=== PATIENT | female | born 1990 | race Caucasian/White ===

== ENCOUNTER 2018-02-10 20:52 | Emergency (ER) | payer SELFPAY ==
[~2018-02-10] VITALS: Ht 172.7 cm; Wt 63.6 kg
[2018-02-10 21:01] VITALS: BP 118/79
[2018-02-10] MEDS ORDERED: SODIUM CHLORIDE FLUSH 10ML SYR IVF ONE (21:30)
[2018-02-10] MEDS ORDERED: SODIUM CHLORIDE 0.9% 1,000ML IVBOLUS ONE (21:30)
[2018-02-10 21:56] LABS: BASOPHILS # (AUTO) 0.02 x10^3/uL (0-0.1); BASOPHILS % (AUTO) 0 % (0-1); EOSINOPHILS # (AUTO) 0.02 x10^3/uL (0-0.4); EOSINOPHILS % (AUTO) 0 % (1-7); LYMPHOCYTES # (AUTO) 0.66 x10^3/uL (1-3.4); LYMPHOCYTES % (AUTO) 9 % (22-44); MD NO; MEAN CORPUSCULAR HEMOGLOBIN 25.9 pg (27.0-34.8); MEAN CORPUSCULAR HGB CONC 32.8 g/dL (32.4-35.8); MEAN PLATELET VOLUME 8.9 fL (7.4-10.4); MONOCYTES # (AUTO) 0.35 x10^3/uL (0.2-0.8); MONOCYTES % (AUTO) 4 % (2-9); NEUTROPHILS # (AUTO) 6.78 x10^3/uL (1.8-6.8); NEUTROPHILS % (AUTO) 87 % (42-75); PLATELET COUNT 247 x10^3/uL (130-400); RED BLOOD COUNT 4.22 x10^6/uL (3.82-5.3); RED CELL DISTRIBUTION WIDTH 17.5 % (9.6-15.2)
[2018-02-10 22:06] LABS: ALANINE AMINOTRANSFERASE 12 U/L (12-78); ALBUMIN 2.6 g/dL (3.4-5.0); ANION GAP 11 mmol/L (5-15); CALCIUM 8.2 mg/dL (8.5-10.1); CHLORIDE 104 mmol/L (98-107); CREATININE 0.61 mg/dL (0.55-1.02)
[2018-02-10 22:11] LABS: CULTURE INDICATED? YES; MICROSCOPIC INDICATED
[2018-02-10 22:24] LABS: ALKALINE PHOSPHATASE 82 U/L (45-117); BILIRUBIN,TOTAL 0.2 mg/dL (0.2-1.0); TOTAL PROTEIN 7.7 g/dL (6.4-8.2)
== END 2018-02-10 23:33 | disposition left against medical advice (07) ==
LOC: ED 22:07
DX: O20.0 Threatened abortion (principal); N30.00 Acute cystitis without hematuria; Z67.91 Unspecified blood type, Rh negative
CPT/HCPCS: 36415; 76801; 80053; 81001; 84702; 85025; 86850; 86900; 87077; 87086; 96360; 99285; J7030; 87186

== ENCOUNTER 2018-03-18 10:57 | Inpatient (IN) | payer OTHER, MEDICAID ==
[~2018-03-18] VITALS: Ht 170.2 cm; Wt 66.1 kg
[~2018-03-18 10:57] MED LIST: BUPR1FIL5 SL
[2018-03-18 12:47] LABS: BASOPHILS # (AUTO) 0.03 x10^3/uL (0-0.1); BASOPHILS % (AUTO) 0 % (0-1); EOSINOPHILS # (AUTO) 0.02 x10^3/uL (0-0.4); EOSINOPHILS % (AUTO) 0 % (1-7); LYMPHOCYTES # (AUTO) 0.66 x10^3/uL (1-3.4); LYMPHOCYTES % (AUTO) 11 % (22-44); MD NO; MEAN CORPUSCULAR HEMOGLOBIN 25.6 pg (27.0-34.8); MEAN CORPUSCULAR HGB CONC 32.4 g/dL (32.4-35.8); MEAN CORPUSCULAR VOLUME 78.9 fL (80-100); MEAN PLATELET VOLUME 8.9 fL (7.4-10.4); MONOCYTES # (AUTO) 0.21 x10^3/uL (0.2-0.8); MONOCYTES % (AUTO) 4 % (2-9); NEUTROPHILS # (AUTO) 5.01 x10^3/uL (1.8-6.8); NEUTROPHILS % (AUTO) 85 % (42-75); PLATELET COUNT 237 x10^3/uL (130-400); RED BLOOD COUNT 3.94 x10^6/uL (3.82-5.3)
[2018-03-18 12:57] LABS: ALBUMIN 2.8 g/dL (3.4-5.0); ANION GAP 11 mmol/L (5-15); CALCIUM 8.1 mg/dL (8.5-10.1); CHLORIDE 106 mmol/L (98-107); CREATININE 0.64 mg/dL (0.55-1.02)
[2018-03-18 13:16] LABS: CULTURE INDICATED? YES; MICROSCOPIC INDICATED
[2018-03-18] MEDS ORDERED: ERTAPENEM 1 GM in SODIUM CHLORIDE 0.9% 50 ML IV SCH (14:00)
[2018-03-18] MEDS ORDERED: SODIUM CHLORIDE FLUSH 10ML SYR IVF PRN (14:00)
[2018-03-18] MEDS ORDERED: ONDANSETRON 2MG/ML, 2ML IVPush PRN (15:30)
[2018-03-18 17:42] VITALS: BP 123/80
[2018-03-18 19:36] VITALS: BP 118/65
[2018-03-18] MEDS: ERTAPENEM 1 GM in SODIUM CHLORIDE 0.9% 50 ML IV SCH (21:14)
[2018-03-19 01:10] VITALS: BP 124/84
[2018-03-19] MEDS: ENOXAPARIN 40 MG/0.4 ML SQ SCH (06:00)
[2018-03-19 08:59] VITALS: BP 120/77
[2018-03-19 14:20] VITALS: BP 118/78
[2018-03-19 19:34] VITALS: BP 107/62
[2018-03-19 19:40] VITALS: BP 148/83
[2018-03-19] MEDS: ERTAPENEM 1 GM in SODIUM CHLORIDE 0.9% 50 ML IV SCH (20:41)
[2018-03-20 00:57] VITALS: BP 113/66
[2018-03-20] MEDS: ENOXAPARIN 40 MG/0.4 ML SQ SCH (06:00)
[2018-03-20 07:56] VITALS: BP 125/79
[2018-03-20 13:08] VITALS: BP 116/70
[2018-03-20 19:33] VITALS: BP 127/83
[2018-03-20] MEDS: ERTAPENEM 1 GM in SODIUM CHLORIDE 0.9% 50 ML IV SCH (20:01)
[2018-03-21 01:35] VITALS: BP 105/66
[2018-03-21] MEDS: ENOXAPARIN 40 MG/0.4 ML SQ SCH (05:43)
[2018-03-21] MEDS: ACETAMINOPHEN 325 MG TABLET PO PRN ×2 (06:10→13:09)
[2018-03-21 08:02] VITALS: BP 119/82
[2018-03-21 12:51] VITALS: BP 132/85
[2018-03-21] MEDS ORDERED: IBUPROFEN 200 MG TABLET PO PRN (17:30)
[2018-03-21] MEDS: HYDROcodone/APAP 10/325 MG TABLET PO PRN ×2 (17:47→23:36)
[2018-03-21 18:47] VITALS: BP 120/77
[2018-03-21] MEDS: ERTAPENEM 1 GM in SODIUM CHLORIDE 0.9% 50 ML IV SCH (20:56)
[2018-03-22 02:14] VITALS: BP 126/78
[2018-03-22] MEDS: HYDROcodone/APAP 10/325 MG TABLET PO PRN ×3 (03:36→17:21)
[2018-03-22] MEDS: ENOXAPARIN 40 MG/0.4 ML SQ SCH (05:27)
[2018-03-22 06:35] VITALS: BP 121/80
[2018-03-22 09:30] LABS: INTERNATIONAL NORMALIZED RATIO 0.95 (0.93-1.1); PROTHROMBIN TIME 9.9 Seconds (9.6-11.5)
[2018-03-22] MEDS ORDERED: SILVER NITRATE STICK TP ONE (10:55)
[2018-03-22] MEDS ORDERED: MISOPROSTOL 200 MCG TABLET ONE (10:55)
[2018-03-22] MEDS ORDERED: OXYTOCIN 10 UNITS/ML, 1ML ONE (10:55)
[2018-03-22] MEDS ORDERED: BUPIVACAINE/PF 0.25% ONE (10:55)
[2018-03-22] MEDS ORDERED: EPINEPHRINE 1 MG/ML, 1ML ONE (10:55)
[2018-03-22] MEDS ORDERED: METHYLERGONOVINE 0.2 MG/ML IM ONE (10:56)
[2018-03-22] MEDS ORDERED: MIDAZOLAM 1 MG/ML, 2ML ONE (12:06)
[2018-03-22] MEDS ORDERED: FENTANYL PF 100 MCG/2ML ONE (12:06)
[2018-03-22] MEDS ORDERED: GABAPENTIN 300 MG CAPSULE ONE (12:44)
[2018-03-22] MEDS ORDERED: FAMOTIDINE 20 MG TABLET ONE (12:44)
[2018-03-22] MEDS ORDERED: METOCLOPRAMIDE 10MG TABLET ONE (12:44)
[2018-03-22] MEDS ORDERED: ONDANSETRON ODT 8 MG ONE (12:44)
[2018-03-22] MEDS ORDERED: ACETAMINOPHEN 500 MG TABLET ONE (12:44)
[2018-03-22] MEDS ORDERED: ACETAMINOPHEN 500 MG TABLET PO ONE (13:00)
[2018-03-22] MEDS ORDERED: FAMOTIDINE 20 MG TABLET PO ONE (13:00)
[2018-03-22] MEDS ORDERED: METOCLOPRAMIDE 10MG TABLET PO ONE (13:00)
[2018-03-22] MEDS ORDERED: GABAPENTIN 300 MG CAPSULE PO ONE (13:00)
[2018-03-22] MEDS ORDERED: ONDANSETRON ODT 8 MG PO ONE (13:00)
[2018-03-22] MEDS ORDERED: LORazepam 2 MG/ML, 1ML ONE (13:59)
[2018-03-22] MEDS ORDERED: OXYcodone 5 MG/5 ML ORAL.SOL UDC ONE (13:59)
[2018-03-22] MEDS ORDERED: MORPHINE SULFATE 4 MG/ML, 1ML ONE (13:59)
[2018-03-22] MEDS ORDERED: PROMETHAZINE 25 MG/ML, 1ML IV PRN (14:00)
[2018-03-22] MEDS ORDERED: KETOROLAC 30 MG/1 ML IV PRN (14:00)
[2018-03-22] MEDS ORDERED: MORPHINE SULFATE 4 MG/ML, 1ML IVPush PRN (14:00)
[2018-03-22] MEDS ORDERED: FENTANYL PF 100 MCG/2ML IV PRN (14:00)
[2018-03-22] MEDS ORDERED: MEPERIDINE/PF 25MG/0.5ML IVPush PRN (14:00)
[2018-03-22] MEDS ORDERED: OXYcodone 5 MG/5 ML ORAL.SOL UDC PO PRN (14:00)
[2018-03-22] MEDS: LORazepam 2 MG/ML, 1ML IVPush PRN ×2 (14:05→14:15)
[2018-03-22 14:30] VITALS: BP 130/86
[2018-03-22] MEDS ORDERED: PROPOFOL 10 MG/ML, 20ML ONE (16:25)
[2018-03-22 20:34] VITALS: BP 108/71
[2018-03-22] MEDS: ERTAPENEM 1 GM in SODIUM CHLORIDE 0.9% 50 ML IV SCH (21:00)
[2018-03-23 04:23] VITALS: BP 111/67
[2018-03-23] MEDS: ENOXAPARIN 40 MG/0.4 ML SQ SCH (06:00)
[2018-03-23 06:43] LABS: BASOPHILS # (AUTO) 0.03 x10^3/uL (0-0.1); BASOPHILS % (AUTO) 1 % (0-1); EOSINOPHILS # (AUTO) 0.07 x10^3/uL (0-0.4); EOSINOPHILS % (AUTO) 1 % (1-7); LYMPHOCYTES # (AUTO) 0.78 x10^3/uL (1-3.4); LYMPHOCYTES % (AUTO) 14 % (22-44); MD NO; MEAN CORPUSCULAR HEMOGLOBIN 26.3 pg (27.0-34.8); MEAN CORPUSCULAR HGB CONC 32.6 g/dL (32.4-35.8); MEAN CORPUSCULAR VOLUME 80.6 fL (80-100); MONOCYTES # (AUTO) 0.27 x10^3/uL (0.2-0.8); MONOCYTES % (AUTO) 5 % (2-9); NEUTROPHILS # (AUTO) 4.46 x10^3/uL (1.8-6.8); NEUTROPHILS % (AUTO) 80 % (42-75); PLATELET COUNT 216 x10^3/uL (130-400); RED BLOOD COUNT 4.03 x10^6/uL (3.82-5.3); RED CELL DISTRIBUTION WIDTH 17.9 % (9.6-15.2)
[2018-03-23 06:51] LABS: ANION GAP 6 mmol/L (5-15); CALCIUM 8.4 mg/dL (8.5-10.1); CHLORIDE 107 mmol/L (98-107); CREATININE 0.76 mg/dL (0.55-1.02)
[2018-03-23] MEDS: ACETAMINOPHEN 325 MG TABLET PO PRN (08:30)
[2018-03-23 08:49] VITALS: BP 122/85
== END 2018-03-23 14:50 | DRG 775 ==
LOC: ED 11:18 → EDIP 13:38 → 3NE 17:36 → LDIP 03-21 12:07 → 3NE 03-21 12:49
PROVIDERS: ADMIT Obstetrics & Gynecology; ATTEND Obstetrics & Gynecology
PROC: 10A07ZW Abortion of Products of Conception, Laminaria, Via Natural or Artificial Opening (ICD-10-PCS; principal; 2018-03-21)
PROC: 30233S1 Transfusion of Nonautologous Globulin into Peripheral Vein, Percutaneous Approach (ICD-10-PCS; 2018-03-22)
DX: O36.4XX0 Maternal care for intrauterine death, not applicable or unspecified (principal); Z37.1 Single stillbirth; E43 Unspecified severe protein-calorie malnutrition; O23.41 Unspecified infection of urinary tract in pregnancy, first trimester; O99.324 Drug use complicating childbirth; O23.11 Infections of bladder in pregnancy, first trimester; O99.321 Drug use complicating pregnancy, first trimester; F11.10 Opioid abuse, uncomplicated; O25.2 Malnutrition in childbirth; O99.284 Endocrine, nutritional and metabolic diseases complicating childbirth; B96.20 Unspecified Escherichia coli [E. coli] as the cause of diseases classified elsewhere; E83.51 Hypocalcemia; O32.1XX0 Maternal care for breech presentation, not applicable or unspecified; O34.219 Maternal care for unspecified type scar from previous cesarean delivery; Z3A.13 13 weeks gestation of pregnancy; Z16.12 Extended spectrum beta lactamase (ESBL) resistance; Z72.0 Tobacco use; Z68.22 Body mass index [BMI] 22.0-22.9, adult
CPT/HCPCS: 36415; 59200; 76998; 80048; 81001; 82040; 83516; 83735; 85025; 85610; 85613; 85670; 85705; 85730; 85732; 86038; 86146; 86147; 86160; 86225; 86235; 86255; 86256; 86376; 86431; 86850; 86870; 86900; 86901; 87040; 87086; 88305; 99285; J0171; J1335; J2250; J2704; J2790; J3010; J3490; Q0162; J2060; J2210; J2590

== ENCOUNTER 2019-01-25 00:27 | Emergency (ER) | payer MEDICAID ==
[~2019-01-25] VITALS: Ht 172.7 cm; Wt 65.9 kg
[2019-01-25 00:28] VITALS: BP 148/98
--- NOTE | 2019-01-25 00:52 | NUR ---
CALLED FOR ROOM, NO ANSWER AT THIS TIME.
--- NOTE | 2019-01-25 00:56 | NUR ---
LOBBY AND BATHROOM CHECKED, PT NOT HERE.
== END 2019-01-25 03:04 | disposition left against medical advice (07) ==
LOC: ED 02:58
DX: R30.0 Dysuria (principal); Z53.21 Procedure and treatment not carried out due to patient leaving prior to being seen by health care provider